=== PATIENT | female | born 1970 | race Caucasian/White ===

== ENCOUNTER 2017-05-27 12:52 | Outpatient (CLI) | payer OTHER ==
--- NOTE | 2017-05-27 15:52 | BD ---
EXAM: DEXA Bone Density 05/27/17 INDICATION: History of rib fracture and concern for postmenopausal osteoporosis. FINDINGS: Lumbar Spine: BMD (g/cm2) L1 0.983 T-Score: -0.1 Z-Score: 0.4 L2 1.075 T-Score: 0.4 Z-Score: 0.9 L3 1.090 T-Score: 0.1 Z-Score: 0.6 L4 1.001 T-Score: -0.5 Z-Score: 0.0 L1-L4 1.035 T-Score: -0.1 Z-Score: 0.4 Left Femoral Neck: 0.852 T-Score: 0.0 Z-Score: 0.5 Total Femur: 1.045 T-Score: 0.8 Z-Score: 1.2 IMPRESSION: Based on WHO criteria, patient's bone mineral density is considered within normal limits. The patien t is at low risk for fracture. POS: [facility]
== END 2017-05-27 12:53 | disposition home or self-care (01) ==
LOC: MAMMO 12:52
PROVIDERS: ATTEND Internal Medicine Medical Oncology
DX: N95.9 Unspecified menopausal and perimenopausal disorder (principal); C50.412 Malignant neoplasm of upper-outer quadrant of left female breast; S22.39XB Fracture of one rib, unspecified side, initial encounter for open fracture
CPT/HCPCS: 77080

== ENCOUNTER 2017-11-23 14:54 | Outpatient (CLI) | payer BC ==
--- NOTE | 2017-11-23 16:01 | RAD ---
RADIOGRAPH CHEST 2 VIEWS: DATE: 11-23-17 TIME: 3:10 P.M. HISTORY: 47-year-old female with chest pain. FINDINGS: There is no air space density, pulmonary edema, pleural effusion, pneumothorax, or cardiomegaly. The left breast shadow is absent. IMPRESSION: 1. No acute cardiopulmonary findings. 2. Status post left mastectomy. hoa POS: [facility]
== END 2017-11-23 14:55 | disposition home or self-care (01) ==
LOC: RAD 14:54
PROVIDERS: ATTEND Internal Medicine Cardiovascular Disease
DX: R06.02 Shortness of breath (principal); Z90.12 Acquired absence of left breast and nipple
CPT/HCPCS: 71046

== ENCOUNTER 2017-11-24 14:50 | Outpatient (CLI) | payer BC | END 2017-11-24 14:51 | disposition home or self-care (01) | LOC: BICMAMMO 14:50 | PROVIDERS: ATTEND Obstetrics & Gynecology | DX: Z08 Encounter for follow-up examination after completed treatment for malignant neoplasm (principal); Z85.3 Personal history of malignant neoplasm of breast; Z80.3 Family history of malignant neoplasm of breast | CPT/HCPCS: G0279 ==

== ENCOUNTER 2018-11-27 13:30 | Outpatient (CLI) | payer BC, SELFPAY ==
--- NOTE | 2018-11-27 14:11 | BD ---
DEXA BONE DENSITY STUDY: HISTORY: Postmenopausal. FINDINGS: Lumbar Spine: BMD (g/cm2) L1 0.907 T-Score: -0.8 L2 0.993 T-Score: -0.3 L3 0.966 T-Score: -1.1 L4 0.889 T-Score: -1.6 L1-L4 0.937 T-Score: -1.0 Femoral Neck: 0.767 T-Score: -0.7 Total Femur: 0.974 T-Score: +0.3 Impression: Normal bone mineral density of the lumbar spine and left femoral neck. POS: [facility]
--- NOTE | 2018-11-27 14:15 | MMO ---
Right Breast MAMMO Unilat Diag DDI RT+HEDY. CLINICAL HISTORY: Patient is 48 years old and is seen for diagnostic exam. The patient has the following family history of breast cancer: maternal grandmother, at age 60, great. The patient has a history of left Mastectomy in 2016. VIEWS: The views performed were: right craniocaudal with tomosynthesis; right mediolateral oblique with tomosynthesis; and right mediolateral. FILMS COMPARED: The present examination has been compared to prior imaging studies performed at [facility] on 11/24/2017, and at [facility] on 09/05/2014, 09/19/2015, 09/23/2015 and 10/18/2016. MAMMOGRAM FINDINGS: The breast is heterogeneously dense, which could obscure a lesion on mammography. There are no suspicious masses, suspicious calcifications, or new areas of architectural distortion. IMPRESSION: THERE IS NO MAMMOGRAPHIC EVIDENCE OF MALIGNANCY. A ROUTINE FOLLOW-UP MAMMOGRAM IN 1 YEAR IS RECOMMENDED. THE RESULTS OF THIS EXAM WERE SENT TO THE PATIENT. ACR BI-RADS Category 1 - Negative MAMMOGRAPHY NOTE: 1. A negative mammogram report should not delay a biopsy if a dominant of clinically suspicious mass is present. 2. Approximately 10% to 15% of breast cancers are not detected by mammography. 3. Adenosis and dense breasts may obscure an underlying neoplasm.
== END 2018-11-27 13:31 | disposition home or self-care (01) ==
LOC: BICMAMMO 13:30
PROVIDERS: ATTEND Internal Medicine Medical Oncology
DX: Z13.820 Encounter for screening for osteoporosis (principal); Z85.3 Personal history of malignant neoplasm of breast; Z80.3 Family history of malignant neoplasm of breast; Z90.12 Acquired absence of left breast and nipple
CPT/HCPCS: 77080; G0279

== ENCOUNTER 2020-08-08 14:50 | Outpatient (CLI) | payer BC ==
--- NOTE | 2020-08-08 15:15 | MMO ---
Right Breast MAMMO Unilat Diag DDI RT+HEDY. CLINICAL HISTORY: Patient is 50 years old and is seen for diagnostic exam. The patient has the following family history of breast cancer: maternal grandmother, at age 60, great. The patient has a history of left Mastectomy in 2016 and left Tramflap. VIEWS: The views performed were: right craniocaudal with tomosynthesis; right mediolateral oblique with tomosynthesis; and right mediolateral with tomosynthesis. FILMS COMPARED: The present examination has been compared to prior imaging studies performed at [facility] on 11/24/2017 and 11/27/2018, and at [facility] on 09/23/2015 and 10/18/2016. This study has been interpreted with the assistance of computer-aided detection. MAMMOGRAM FINDINGS: There are scattered fibroglandular densities. There are no suspicious masses, suspicious calcifications, or new areas of architectural distortion. IMPRESSION: THERE IS NO MAMMOGRAPHIC EVIDENCE OF MALIGNANCY. A ROUTINE FOLLOW-UP MAMMOGRAM IN 1 YEAR IS RECOMMENDED. THE RESULTS OF THIS EXAM WERE SENT TO THE PATIENT. ACR BI-RADS Category 1 - Negative MAMMOGRAPHY NOTE: 1. A negative mammogram report should not delay a biopsy if a dominant of clinically suspicious mass is present. 2. Approximately 10% to 15% of breast cancers are not detected by mammography. 3. Adenosis and dense breasts may obscure an underlying neoplasm. Reported by: JODY GARCÍA MD Electonically Signed: [id number]
== END 2020-08-08 14:51 | disposition home or self-care (01) ==
LOC: BICMAMMO 14:50
PROVIDERS: ATTEND Internal Medicine Medical Oncology
DX: Z08 Encounter for follow-up examination after completed treatment for malignant neoplasm (principal); Z85.3 Personal history of malignant neoplasm of breast
CPT/HCPCS: G0279

== ENCOUNTER 2021-09-07 14:50 | Outpatient (CLI) | payer BC | END 2021-09-07 14:51 | disposition home or self-care (01) | LOC: BICMAMMO 14:50 | PROVIDERS: ATTEND Internal Medicine Medical Oncology | DX: Z12.31 Encounter for screening mammogram for malignant neoplasm of breast (principal); Z80.3 Family history of malignant neoplasm of breast; Z90.12 Acquired absence of left breast and nipple | CPT/HCPCS: 77063; 77067 ==

== ENCOUNTER 2022-09-27 15:26 | Outpatient (CLI) | payer BC | END 2022-09-27 15:27 | disposition home or self-care (01) | LOC: BICMAMMO 15:26 | PROVIDERS: ATTEND Internal Medicine Medical Oncology | DX: Z12.31 Encounter for screening mammogram for malignant neoplasm of breast (principal); Z80.3 Family history of malignant neoplasm of breast; Z85.3 Personal history of malignant neoplasm of breast; Z90.12 Acquired absence of left breast and nipple | CPT/HCPCS: 77063; 77067 ==

== ENCOUNTER 2023-03-08 08:47 | Outpatient (CLI) | payer BC | END 2023-03-08 08:48 | disposition home or self-care (01) | LOC: NM 08:47 | PROVIDERS: ATTEND Internal Medicine Medical Oncology | DX: M54.50 Low back pain, unspecified (principal); C50.412 Malignant neoplasm of upper-outer quadrant of left female breast | CPT/HCPCS: 78306; A9503 ==